=== PATIENT | female | born 1965 | race Caucasian/White ===

== ENCOUNTER 2022-03-01 08:32 | Outpatient (CLI) | payer BC ==
[2022-03-01] MEDS ORDERED: Iopamidol 300 61% 100 ML VIAL FS ONE (11:38)
== END 2022-03-01 08:33 | disposition home or self-care (01) ==
LOC: CSHCT 08:32
PROVIDERS: ATTEND Family Medicine
DX: N20.0 Calculus of kidney (principal); D35.02 Benign neoplasm of left adrenal gland; R10.32 Left lower quadrant pain
CPT/HCPCS: 74178; Q9967